=== PATIENT | male | born 1990 | race Two or more races ===

== ENCOUNTER 2019-02-15 03:19 | Emergency (ER) | payer SELFPAY ==
[~2019-02-15] VITALS: Ht 167.6 cm; Wt 72.6 kg
[2019-02-15 03:26] VITALS: BP 132/71
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
[2019-02-15] MEDS ORDERED: Hydrogen Peroxide 473ml Bottle TOPIC ONE (03:45)
[2019-02-15] MEDS ORDERED: Amoxicillin 250mg/5ml susp 100ml ORAL ONE (03:45)
[2019-02-15] MEDS ORDERED: TYLENOL325 MG ORAL (04:09)
[2019-02-15] MEDS ORDERED: AMOXICILLIN500 MG ORAL (04:09)
[2019-02-15 04:18] VITALS: BP 132/71
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
== END 2019-02-15 04:18 ==
LOC: EDBD 03:19 → EMR 03:33
DX: S02.2XXA Fracture of nasal bones, initial encounter for closed fracture (principal); S00.531A Contusion of lip, initial encounter; F12.10 Cannabis abuse, uncomplicated; W25.XXXA Contact with sharp glass, initial encounter; Y92.009 Unspecified place in unspecified non-institutional (private) residence as the place of occurrence of the external cause
CPT/HCPCS: 70160; 99283